=== PATIENT | female | born 1945 | race Caucasian/White ===

== ENCOUNTER 2019-02-08 08:45 | Inpatient (IN) ==
[~2019-02-08 08:45] MED LIST: Bacitracin 50,000 UNIT, Polymyxin B Sulfate 500,000 UNIT, Sodium Chloride IRRigation 1,... IR ONE
[2019-02-08] MEDS ORDERED: CeFAZolin Syr 2,000MG/20 ML 2,000 MG/20 ML SYRINGE IVPB ONE (09:17)
[2019-02-08] MEDS ORDERED: *HR* FentaNYL (PF) 100 MCG/2 ML VIAL ONE (09:23)
[2019-02-08] MEDS ORDERED: Lidocaine -MPF 2% 2 ML VIAL ONE (09:23)
[2019-02-08] MEDS ORDERED: Ondansetron 4 MG/2 ML VIAL ONE (09:23)
[2019-02-08] MEDS ORDERED: Dexamethasone 4 MG/ML VIAL ONE (09:23)
[2019-02-08] MEDS ORDERED: *HR* Midazolam HCl 2 MG/2 ML VIAL ONE (09:24)
[2019-02-08] MEDS ORDERED: Lidocaine HCL 4 ML Topical Solution (Laryng-O-Jet Kit Sterile Pak) TP ONE (09:24)
[2019-02-08] MEDS ORDERED: *HR* Propofol 200 MG/20 ML VIAL IVP ONE (09:24)
[2019-02-08] MEDS ORDERED: *HR* Succinylcholine 200 MG/10 ML VIAL IVP ONE (09:24)
[2019-02-08] MEDS ORDERED: *HR* Rocuronium Bromide 50 MG/5 ML VIAL ONE (09:24)
[2019-02-08] MEDS ORDERED: *HR* Remifentanil 1 MG VIAL IVP ONE (09:25)
--- NOTE | 2019-02-08 09:25 | Anesthesia Evaluation PreOp ---
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 (lumbar stenosis w/ neurogenic claudication and radiculopathy) Other Medical History: Other (uterine cancer) Anesthesia History: Past Anesthesia (ALYSE, calli, gastric bypass, b/l hip, cysto/stent) : No Alcohol Use: none Drug use: none Medications and Allergies Atenolol [Tenormin] 50 mg PO DAILY 05/18/18 [History] Gabapentin [Neurontin] 300 mg PO HS 05/18/18 [History] hydroCHLOROthiazide [Hydrochlorothiazide] 25 mg PO DAILY 05/18/18 [History] Amlodipine Besylate 10 mg PO DAILY 07/07/18 [History] Allergy/AdvReac Type Severity Reaction Status Date / Time codeine Allergy Difficulty Verified 07/07/18 12:23 Breathing nitrofurantoin Allergy Itching Verified 07/07/18 12:23 [From Macrodantin] Sulfa (Sulfonamide Allergy Anaphylaxis Verified 07/07/18 12:23 Antibiotics) lisinopril AdvReac Cough Verified 07/07/18 12:23 - Meds/Allergy Pre-op Review Medications Reviewed: Yes Allergies Reviewed: Yes Beta Blockers on Current Med List: Yes (atenolol) If Beta Blockers taken, Date/Time (Last Dose taken): 629 Anesthesia Results - Labs Laboratory Tests 02/02/19 02/02/19 02/02/19 14:11 14:11 14:11 WBC 6.4 Hgb 13.1 Hct 39.4 Plt Count 284 PT 11.4 INR 1.0 APTT 33.8 Sodium 140 Potassium 4.1 Chloride 102 Carbon Dioxide 27 BUN 16 Creatinine 0.82 Est GFR (Non-Af Amer) > 60 - Imaging EKG: report reviewed Anesthesia Exam Vital Signs/O2 Sat/Glucose, Most Recent Temp Pulse Resp BP Pulse Ox 98.0 F 50 18 165/65 95 02/08/19 09:20 02/08/19 09:20 02/08/19 09:20 02/08/19 09:20 02/08/19 09:20 Weight: 97 kg NPO (# of Hours): > 8 hr - HEENT Pupil (Motor): Pupils equal Mallampati: II Teeth: Edentulous - 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
[2019-02-08] MEDS ORDERED: Famotidine 20 MG/2 ML VIAL IVP ONE (09:30)
[2019-02-08] MEDS ORDERED: Ringers Solution, Lactated 1,000 ML IVC SCH ×2 (09:30→18:23)
[2019-02-08] MEDS ORDERED: *HR* OxyCODONE Immed Rel 5 MG TABLET PO PRN (09:30)
[2019-02-08] MEDS ORDERED: Gabapentin 300 MG CAPSULE PO ONE (09:30)
[2019-02-08] MEDS ORDERED: *HR* Labetalol 20 MG/4 ML SYRINGE IVP PRN (09:30)
[2019-02-08] MEDS ORDERED: Ondansetron 4 MG/2 ML VIAL IVP ONE (09:30)
[2019-02-08] MEDS ORDERED: Albuterol 2.5 MG/3 ML NEBULIZER IH ONE (09:30)
[2019-02-08] MEDS ORDERED: Acetaminophen IV 1,000 MG/100 ML INFUS..BTL IVPB ONE (09:30)
--- NOTE | 2019-02-08 12:27 | History & Physical Report ---
Date of Encounter: 02/08/19 Time of Encounter: 12:26 24 Hour HP Update - Instructions Instructions: If the History and Physical is less than 30 days old and was completed prior to A.M. admission and or procedure and has NOT been updated on calendar day of procedure please complete this update prior to performing procedure. - Update Patient reports changes in Medical Condition: No Changes in examination, assessment, or condition: No Changes in Medication: No Preop tests/diagnostics Reviewed: Yes Pre-Op MRSA Screen: Negative Surgery Remains Indicated: Yes Consent for Planned Operative Procedure(s) Verified: Yes - Pre-Operative Checklist Preoperative Checklist Indicated: No Prophylactic Antibiotic Ordered: Yes Home Medications Include Beta Kinsey: Yes Beta Kinsey Taken Today (Day of Surgery): No Beta Kinsey Taken Yesterday (Day Prior to Surgery): Yes Is VTE Prophylaxis Indicated?: Yes
[2019-02-08] MEDS ORDERED: EPHEDrine 50 MG/ML VIAL ONE (13:24)
[2019-02-08] MEDS ORDERED: *HR* PHENYLEPHRINE 1,000 MCG/10 ML SYRINGE IVP ONE (13:25)
[2019-02-08] MEDS ORDERED: Neostigmine Methylsulfate 3 MG/3 ML SYRINGE ONE (15:02)
--- NOTE | 2019-02-08 15:51 | Orthopedic Operative Note ---
Date of procedure: 02/08/19 Pre-op diagnosis: Spondylolisthesis, lumbar stenosis, lumbar radiculopathy Post-op diagnosis: same Operation/Findings: Posterior lumbar interbody fusion L4-L5: The patient successfully underwent general endotracheal anesthesia. The patient was given antibiotics prior to the start of the procedure. Compression boots and stockings were used for deep vein thrombosis prophylaxis. A Jones catheter was placed. Leads for neuro monitoring were placed on the upper and lower extremities. This included the cranium. The neuro monitoring personnel confirmed there were satisfactory readings prior to the start of the procedure. The patient was turned prone on the Erasto table. The back was prepped and draped in the usual sterile fashion. An incision was was marked and centered over the involved L4 and L5 levels in the mid line. The incision was deepened through the lumbar fascia. Bovie cautery and Martin elevators were used to reflect the paraspinal musculature at the lateral extent of the transverse processes of the involved L4 and L5 levels. Kyra clamps were placed over the L4 and L5 spinous processes. An intraoperative lateral fluoroscopy graft was obtained. A conversation was held between the surgeon and radiologist and both confirmed we had the correct operative levels. We then placed pedicle screws in standard fashion with the aid of fluoroscopy and anatomic landmarks. Briefly a starter awl was used. A gearshift was subsequently used to enter the private pilot hole via a transpedicular route into the vertebral body. The private pilot hole was tapped with an undersized instrument, and subsequently four 6.5 x 40 mm pedicle screws were placed bilaterally at the indicated L4 and L5 levels. The screws were tested with the aid of the neurologic monitoring staff via pedicle screw stimulation. All reading suggested there was no significant cortical wall breech. The screws were also evaluated fluoro- graphically and appeared to be in satisfactory position. We then turned our attention to the decompression portion of the procedure. We removed the supraspinous and interspinous ligaments and subsequently the insertion of the ligamentum flavum on the undersurface of the proximal L4 lamina was dislodged with a curette. We then removed the ligamentum flavum as well as undercut the L4-L5 facets at this level to decompress the lateral recesses. We also performed a L4 laminectomy. After the decompression, which was over and above that which was required to place the interbody graft, the foramen and traversing roots at this L4-L5 level were found to be free and patent. We also took part of the medial facets in order to aid in the decompression. We then protected the neural elements including the thecal sac and traversing nerve root on the right with a dural retractor. We made an annulotomy into the L4-L5 disc space and then removed entire disc material using Pituitary instruments. We trialed various size grafts after the endplates were prepared for graft insertion. A 10 x 26 enter body graft fit well within the L4-L5 disc space. We obtained some bone from the right posterior superior iliac spine through us a separate incision and combined with this with the bone which we had saved from the laminectomy portion of the procedure. This autograft bone was first placed in the anterior portion of the L4-L5 disc space and additional bone was placed within the interbody graft spacer. We then placed the interbody graft spacer obliquely across the L4-L5 disc space towards the midline while protecting the neural elements with a root retractor. When the graft was found to be in satisfactory position the helix coil winder was removed. We then copiously irrigated the wound. We then decorticated the L4 and L5 transverse processes as well as the facet joints of the involved L4 and L5 levels to aid in the posterolateral fusion. We placed autograft bone in the lateral gutters over these regions. We then placed rods within the screw heads of the involved L4 and L5 levels and first locked the distal screws and then subsequently locked the proximal screws so as to improve and reduce the spondylolisthesis previously seen. We then closed the wound in layers with 1 Vicryl for the fascia, 2-0 Vicryl. Subcutaneous tissue, and Dermabond was used for skin closure. Sterile dressings were placed over the wound. The patient was turned supine on a hospital bed and extubated. All sponge instruments and needle counts were correct at the end of the procedure. The patient tolerated the procedure well without complications. Anesthesia: GETA Surgeon: Umer Walters Jr Was there an assistant professor of communication present: No Estimated blood loss (cc): 90 Specimen: None Condition: stable Disposition: PACU
[2019-02-08] MEDS: *HR* Promethazine 25 MG/ML VIAL IVP PRN ×2 (16:02→16:13)
[2019-02-08] MEDS: *HR* HYDROmorphone (PF) 1 MG/ML SYRINGE IVP PRN ×2 (16:09→16:28)
--- NOTE | 2019-02-08 18:11 | Anesthesia Evaluation Post Op ---
Date of Encounter: 02/08/19 Time of Encounter: 18:10 - Vital Signs Vital Signs: Vital Signs/O2 Sat, Most Current Temp Pulse Resp BP Pulse Ox 97.6 F 46 12 143/68 98 02/08/19 17:54 02/08/19 18:04 02/08/19 18:04 02/08/19 18:04 02/08/19 18:04 - Lungs Lungs: Clear Ascult./Percussion - Airway Airway: Non-obstructed - Cardiovascular Regular Rate - Mental Status Mental Status: Alert & Oriented, Answers Appropriately - Pain Pain Scale: 2 Pain Scale used: Numeric (1 - 10) - Nausea Vomiting Nausea Vomiting: Responds to treatment with IV Meds - Hydration Hydration: Tolerates oral liquids, Has not voided - Discharge PostOp Status: Transfer Patient to floor
[2019-02-08] MEDS ORDERED: Naloxone 0.4 MG/ML INJ IVP PRN (18:23)
[2019-02-09] MEDS: *HR* HYDROcodone/Acet 5/325 mg TABLET PO PRN ×2 (04:20→10:39)
[2019-02-09] MEDS: amLODIPine 5 MG TABLET PO SCH (08:40)
--- NOTE | 2019-02-09 12:24 | Orthopedics Progress Note ---
Date of Encounter: 02/09/19 Time of Encounter: 12:30 - Assessment and Plan (1) Spondylolisthesis Status: Chronic Qualifiers: Spinal region: unspecified Qualified Code(s): M43.10 - Spondylolisthesis, site unspecified (2) Lumbar stenosis Status: Chronic Qualifiers: Neurogenic claudication status: unspecified Qualified Code(s): M48.061 - Spinal stenosis, lumbar region without neurogenic claudication (3) Lumbar radiculopathy Status: Chronic (4) Status post lumbar spinal fusion Status: Acute Subjective Principal diagnosis: s/p PLIF Interval history: POD#1 s/p Posterior lumbar interbody fusion L4-L5 [Spondylolisthesis, lumbar stenosis, lumbar radiculopathy] 02/08/19 Patient seen at bedside. Patient has had intermittent nausea with vomiting. A&Ox3 Dressing and incision c/d/i No calf tenderness, erythema, or warmth. Neurovascularly intact b/l LE. Labwork, vitals, and medications reviewed. Pain control: Adequate Participating in therapy. All questions and concerns addressed. Educated on use of incentive spirometer, ambulation, and hydration. Patient educated on post-operative restrictions and care. Addressed: see above. Patient course and disposition discussed with Dr. Walters D/C plan: continue postoperative care Objective Vital signs: Vital Signs Temp Pulse Resp BP Pulse Ox 02/09/19 11:03 97.8 F 59 16 154/78 98 02/09/19 06:42 97.7 F 62 16 125/69 97 02/09/19 04:03 97.9 F 83 18 155/85 97 02/08/19 22:59 97.9 F 62 15 149/90 95 02/08/19 21:11 97.6 F 59 18 149/72 100 02/08/19 20:32 97.8 F 48 18 132/78 96 02/08/19 19:40 97.7 F 48 18 128/71 99 02/08/19 19:06 83 124/53 95 02/08/19 18:36 53 16 144/61 100 02/08/19 18:14 97.0 F L 57 12 154/80 98 02/08/19 18:04 46 12 143/68 98 02/08/19 17:54 97.6 F 44 12 131/53 96 02/08/19 17:44 41 10 122/45 97 02/08/19 17:34 49 10 141/59 100 02/08/19 17:24 97.0 F L 47 10 123/51 100 02/08/19 17:14 45 10 122/53 95 02/08/19 17:04 42 10 124/63 95 02/08/19 16:54 97.4 F L 43 10 128/52 94 02/08/19 16:44 44 10 125/47 96 02/08/19 16:34 56 12 146/81 95 02/08/19 16:24 97.6 F 56 14 160/80 96 02/08/19 16:14 75 12 175/83 98 02/08/19 16:04 75 12 182/102 98 02/08/19 15:54 97.6 F 73 10 200/93 100 Intake and Output 02/08/19 02/09/19 02/09/19 23:59 07:59 15:59 Intake Total 100 / 100 100 / 100 Output Total 250 / 370 900 / 900 Balance -150 / -270 -800 / -800 Intake: IV Fluids 100 / 100 100 / 100 Ancef 2,000 MG In 0.9 % Sodium 100 / 100 100 / 100 Chloride 100 ML @ 200 mls/hr IVPB Q8HR [facility] Rx#:[id number] Output: Urine Amount (Catheter) 250 / 280 Catheter 900 / 900 Other: Weight 98.1 kg Patient Weight 02/09/19 23:59 Weight 98.1 kg Consult Discharge Plan - Plan Instructions: Hydrocodone/Acetaminophen (By mouth), Promethazine (By mouth), Laxative, Stool Softeners (By mouth) Additional Instructions: Discharge Instructions: Lumbar Please call [facility] ([phone]), your Primary Care Physician, or report to the ER if you have any of the following symptoms: Fever greater that 101.5, increased pain/redness/drainage/odor for your incision site or any other concerning symptoms. ACTIVITY * May Shower * No Tub Baths * No lifting greater than 10 pounds * No Smoking * No Swimming * No off Ground Activities (Running, Climbing, Ladders, Horseback Riding) * No Driving * Wear Back Brace when up walking if lumbar fusion done * Incentive Spirometer 10 times an hour MEDICATIONS: Upon discharge resume your home medications. Take all the medications as prescribed. Take a stool softener if taking narcotic pain medications. Stool softeners are only effective if you drink enough fluids. Drink 6-8 glass of water or fluids a day, unless this is not allowed for another health problem. Despite using stool softeners, if you haven't had a bowel movement in 3 days, please switch to a gentle laxative. Gentle laxatives are sold over the counter. You should have a bowel movement within 24 hours, if not call the office. You will be discharged from the hospital with a prescription for pain medication. You are encouraged to decrease the use of narcotic pain medication as tolerated. Should you require a refill, please call the office. It is best to call 48-72 hours in advance of needing a prescription refill so you don't run out of medication. WOUND CARE: Remove Dressing Tomorrow. Leave incision open to air. Pat dry when you get out of the shower. FOLLOW-UP: Please follow up with your surgeon in the orthopedic clinic in 2 w eeks from the day of surgery. References: [employer] ([email or web address]) Referrals: Dajuan Andres DO [Primary Care Provider] - Prescriptions: Docusate Sodium [Colace] 100 mg PO BID 5 Days #10 capsule HYDROcodone/Acet 5/325 mg [[place] 5-325 mg] 1 tab PO Q6HR PRN 5 Days #20 tablet PRN Reason: Severe Pain Promethazine [Phenergan] 12.5 mg PO Q8H PRN 7 Days #21 tablet PRN Reason: Nausea And Vomiting
[2019-02-09] MEDS: *HR* OxyCODONE Immed Rel 5 MG TABLET PO PRN ×2 (15:34→21:55)
[2019-02-10] MEDS: *HR* OxyCODONE Immed Rel 5 MG TABLET PO PRN (04:15)
[2019-02-10] MEDS: Acetaminophen 325 MG TABLET PO PRN ×2 (04:16→14:45)
[2019-02-10] MEDS: Ondansetron 4 MG/2 ML VIAL IVP PRN ×2 (08:46→17:41)
[2019-02-10] MEDS: amLODIPine 5 MG TABLET PO SCH (09:01)
[2019-02-10] MEDS: *HR* HYDROcodone/Acet 5/325 mg TABLET PO PRN (09:09)
[2019-02-10] MEDS ORDERED: *HR* Promethazine 25 MG/ML VIAL IVP ONE (12:51)
[2019-02-10] MEDS ORDERED: *HR* Promethazine 25 MG/ML VIAL IVP PRN (20:33)
[2019-02-11] MEDS: *HR* HYDROcodone/Acet 5/325 mg TABLET PO PRN (03:17)
[2019-02-11] MEDS: *HR* OxyCODONE Immed Rel 5 MG TABLET PO PRN (09:18)
[2019-02-11] MEDS: Ondansetron 4 MG/2 ML VIAL IVP PRN (09:19)
[2019-02-11] MEDS: amLODIPine 5 MG TABLET PO SCH (09:19)
[2019-02-11 11:56] VITALS: BP 153/67
[2019-02-11] MEDS ORDERED: tiZANidine 4 MG TABLET PO PRN (13:10)
--- NOTE | 2019-02-11 13:11 | Discharge Summary ---
Date of Encounter: 02/11/19 Time of Encounter: 12:30 - Discharge Diagnosis (1) Status post lumbar spinal fusion Priority: Primary Status: Acute (2) Lumbar radiculopathy Priority: Primary Status: Chronic (3) Lumbar stenosis Priority: Primary Status: Chronic Qualifiers: Neurogenic claudication status: unspecified Qualified Code(s): M48.061 - Spinal stenosis, lumbar region without neurogenic claudication (4) Spondylolisthesis Priority: Primary Status: Chronic Qualifiers: Spinal region: unspecified Qualified Code(s): M43.10 - Spondylolisthesis, site unspecified (5) Nausea Priority: Secondary Status: Acute - Hospital Course Hospital course: Ms. Singleton is a 73 year old female POD#3 s/p Posterior lumbar interbody fusion L4-L5 [Spondylolisthesis, lumbar stenosis, lumbar radiculopathy] 02/08/19 Patient seen at bedside. Spouse and daughter at bedside. Patient states nausea is ongoing, particularly after taking Oxycodone. A&Ox3 Dressing and incision c/d/i No calf tenderness, erythema, or warmth. Neurovascularly intact b/l LE. Labwork, vitals, and medications reviewed. Pain control: Adequate Participating in therapy. All questions and concerns addressed. Educated on use of incentive spirometer, ambulation, and hydration. Patient educated on post-operative restrictions and care. Addressed: see above. Patient course and disposition discussed with Dr. Walters D/C plan: home today with [place] in place of Oxycodone as patient states that [place] causing less nausea. Patient denies any further vomiting. Continue Phenergan. - Time Spent with Patient Total time spent providing and/or coordinating discharge services: - Discharge Medications Prescriptions: New Docusate Sodium [Colace] 100 mg PO BID 5 Days #10 capsule Promethazine [Phenergan] 12.5 mg PO Q8H PRN 7 Days #21 tablet PRN Reason: Nausea And Vomiting HYDROcodone/Acet 5/325 mg [[place] 5-325 mg] 1 tab PO Q6HR PRN 5 Days #20 tablet PRN Reason: Severe Pain Continued Atenolol [Tenormin] 50 mg PO DAILY Amlodipine Besylate 10 mg PO DAILY Home Medications: Atenolol [Tenormin] 50 mg PO DAILY 05/18/18 [History] Amlodipine Besylate 10 mg PO DAILY 07/07/18 [History] Docusate Sodium [Colace] 100 mg PO BID 5 Days #10 capsule 02/10/19 [Rx] HYDROcodone/Acet 5/325 mg [[place] 5-325 mg] 1 tab PO Q6HR PRN 5 Days #20 tablet 02/11/19 [Rx] Promethazine [Phenergan] 12.5 mg PO Q8H PRN 7 Days #21 tablet 02/11/19 [Rx] Allergies/Adverse Reactions: Allergy/AdvReac Type Severity Reaction Status Date / Time codeine Allergy Difficulty Verified 07/07/18 12:23 Breathing nitrofurantoin Allergy Itching Verified 07/07/18 12:23 [From Macrodantin] Sulfa (Sulfonamide Allergy Anaphylaxis Verified 07/07/18 12:23 Antibiotics) lisinopril AdvReac Cough Verified 07/07/18 12:23 Date of admission: 02/08/19 18:23 Primary care physician: Dajuan Andres DO Consults: 02/08/19 18:23 Consult to Occupational Therapy [CONS] Routine Comment: Evaluate, develop and implement POC Reason for Consult: Postoperative rehabilitation Does patient have active BEDREST order?: No Is patient medically & hemodynamically stable?: Yes Patient assessed for mobility or mobilized this visit?: No Consult to Physical Therapy [CONS] Routine Comment: Evaluate, develop and implement POC Reason for Consult: Postoperative rehabilitation Does patient have active BEDREST order?: No Is patient medically & hemodynamically stable?: Yes Patient assessed for mobility or mobilized this visit?: No Consult to Spine Navigator [CONS] [CONS] Routine Discharging clinician: Umer Walters Jr Anticipated date of discharge: 02/11/19 - VTE Documentation of Mechanical Device: Venous foot pump, device - Impressions ITS Impressions Fluoroscopy 02/08/19 00:00 IMPRESSION: Intraprocedural fluoroscopic spot images as above. See separate procedure report for more information. D/ / Peter Starks MD / Peter tSarks MD Interpreting Provider: Peter Starks MD Lumbar Spine X-Ray 02/08/19 00:00 IMPRESSION: Intraprocedural fluoroscopic spot images as above. See separate procedure report for more information. D/ / Peter Starks MD / Peter Starks MD Interpreting Provider: Peter Starks MD Lumbar Spine X-Ray 02/11/19 09:30 IMPRESSION: 1. Status post posterior spinal fusion at L4-5 with marked decrease in the grade 1 spondylolisthesis which now measures 1.5 mm. D/ / Galileo Blue MD / Galileo Blue MD Interpreting Provider: Galileo Blue MD - Patient Status Disposition: Home, Self-Care Condition: Good Functional capacity at discharge: uses cane/walker Overall status at discharge: patient is progressing back to baseline - Discharge Instructions Instructions: Hydrocodone/Acetaminophen (By mouth), Promethazine (By mouth), Laxative, Stool Softeners (By mouth) Follow Up With: Dajuan Andres DO [Primary Care Provider] - Additional Instructions: Discharge Instructions: Lumbar Please call [facility] ([phone]), your Primary Care Physician, or report to the ER if you have any of the following symptoms: Fever greater that 101.5, increased pain/redness/drainage/odor for your incision site or any other concerning symptoms. ACTIVITY * May Shower * No Tub Baths * No lifting greater than 10 pounds * No Smoking * No Swimming * No off Ground Activities (Running, Climbing, Ladders, Horseback Riding) * No Driving * Wear Back Brace when up walking if lumbar fusion done * Incentive Spirometer 10 times an hour MEDICATIONS: Upon discharge resume your home medications. Take all the medications as prescribed. Take a stool softener if taking narcotic pain medications. Stool softeners are only effective if you drink enough fluids. Drink 6-8 glass of water or fluids a day, unless this is not allowed for another health problem. Despite using stool softeners, if you haven't had a bowel movement in 3 days, please switch to a gentle laxative. Gentle laxatives are sold over the counter. You should have a bowel movement within 24 hours, if not call the office. You will be discharged from the hospital with a prescription for pain medication. You are encouraged to decrease the use of narcotic pain medication as tolerated. Should you require a refill, please call the office. It is best to call 48-72 hours in advance of needing a prescription refill so you don't run out of medication. WOUND CARE: Remove Dressing Tomorrow. Leave incision open to air. Pat dry when you get out of the shower. FOLLOW-UP: Please follow up with your surgeon in the orthopedic clinic in 2 weeks from the day of surgery. References: [employer] ([email or web address]) - Diet and Activity Activity: as per physical therapy Diet: advance to your usual diet
--- NOTE | 2019-02-12 08:23 | Orthopedics Progress Note ---
Date of Encounter: 02/10/19 Time of Encounter: 12:30 - Assessment and Plan (1) Spondylolisthesis Status: Chronic Qualifiers: Spinal region: unspecified Qualified Code(s): M43.10 - Spondylolisthesis, site unspecified (2) Lumbar stenosis Status: Chronic Qualifiers: Neurogenic claudication status: unspecified Qualified Code(s): M48.061 - Spinal stenosis, lumbar region without neurogenic claudication (3) Lumbar radiculopathy Status: Chronic (4) Status post lumbar spinal fusion Status: Acute Subjective Principal diagnosis: s/p PLIF Interval history: POD#2 s/p Posterior lumbar interbody fusion L4-L5 [Spondylolisthesis, lumbar stenosis, lumbar radiculopathy] 02/08/19 Patient seen at bedside. Patient has had intermittent nausea with vomiting. A&Ox3 Dressing and incision c/d/i No calf tenderness, erythema, or warmth. Neurovascularly intact b/l LE. Labwork, vitals, and medications reviewed. Pain control: Adequate Participating in therapy. All questions and concerns addressed. Educated on use of incentive spirometer, ambulation, and hydration. Patient educated on post-operative restrictions and care. Addressed: see above. Patient course and disposition discussed with Dr. Walters D/C plan: continue postoperative care Objective Vital signs: Vital Signs Temp Pulse Resp BP Pulse Ox 02/11/19 11:55 99.0 F 65 16 153/67 93 Consult Discharge Plan - Plan Instructions: Hydrocodone/Acetaminophen (By mouth), Promethazine (By mouth), Laxative, Stool Softeners (By mouth) Additional Instructions: Discharge Instructions: Lumbar Please call [facility] ([phone]), your Primary Care Physician, or report to the ER if you have any of the following symptoms: Fever greater that 101.5, increased pain/redness/drainage/odor for your incision site or any other concerning symptoms. ACTIVITY * May Shower * No Tub Baths * No lifting greater than 10 pounds * No Smoking * No Swimming * No off Ground Activities (Running, Climbing, Ladders, Horseback Riding) * No Driving * Wear Back Brace when up walking if lumbar fusion done * Incentive Spirometer 10 times an hour MEDICATIONS: Upon discharge resume your home medications. Take all the medications as prescribed. Take a stool softener if taking narcotic pain medications. Stool softeners are only effective if you drink enough fluids. Drink 6-8 glass of water or fluids a day, unless this is not allowed for another health problem. Despite using stool softeners, if you haven't had a bowel movement in 3 days, please switch to a gentle laxative. Gentle laxatives are sold over the counter. You should have a bowel movement within 24 hours, if not call the office. You will be discharged from the hospital with a prescription for pain medication. You are encouraged to decrease the use of narcotic pain medication as tolerated. Should you require a refill, please call the office. It is best to call 48-72 hours in advance of needing a prescription refill so you don't run out of medication. WOUND CARE: Remove Dressing Tomorrow. Leave incision open to air. Pat dry when you get out of the shower. FOLLOW-UP: Please follow up with your surgeon in the orthopedic clinic in 2 weeks from the day of surgery. References: [employer] ([email or web address]) Referrals: Dajuan Andres DO [Primary Care Provider] - Prescriptions: Docusate Sodium [Colace] 100 mg PO BID 5 Days #10 capsule HYDROcodone/Acet 5/325 mg [[place] 5-325 mg] 1 tab PO Q6HR PRN 5 Days #20 tablet PRN Reason: Severe Pain Promethazine [Phenergan] 12.5 mg PO Q8H PRN 7 Days #21 tablet PRN Reason: Nausea And Vomiting
== END 2019-02-11 15:20 | disposition home or self-care (01) | DRG 455 ==
LOC: SAMDAY 08:45 → 3NENU 18:23
PROVIDERS: ADMIT Orthopaedic Surgery Orthopaedic Surgery of the Spine; ATTEND Orthopaedic Surgery Orthopaedic Surgery of the Spine